=== PATIENT | female | born 2000 | race African-American/Black ===

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

== ENCOUNTER 2022-09-12 10:09 | Emergency (ER) | payer OTHER ==
[2022-09-12 11:12] VITALS: BP 129/71; PULSE 97; RESP 19; TEMP 98.6; BMI 22.2
== END 2022-09-12 12:34 | disposition home or self-care (01) ==
LOC: JER 10:09 → JERFT 10:09
DX: M79.5 Residual foreign body in soft tissue (principal)
CPT/HCPCS: 99282-25

== ENCOUNTER 2023-08-05 11:30 | Emergency (ER) | payer OTHER ==
[2023-08-05 11:48] VITALS: BP 118/62; PULSE 88; RESP 18; TEMP 97.3; BMI 22.6
[2023-08-05 12:56] LABS: HCG,QUALITATIVE URINE Positive
[2023-08-05 13:01] LABS: BASO % 0.6 % (0-2.0); EOS % 5.6 % (0-4.5); EPI CELLS >36 /uL (0-25.1); HEMATOCRIT 35.5 % (32.4-45.2); HEMOGLOBIN 11.9 GM/dL (10.7-15.3); HYALINE CASTS 0 /uL (0-3.1); LYMPH % 24.3 % (8-40); MCH 22.1 pg (25.7-33.7); MCHC 33.5 g/dl (32.0-36.0); MEAN CELL VOLUME 65.9 fl (80-96); MEAN PLT VOLUME 9.2 fl (7.5-11.1); MONO % 6.6 % (3.8-10.2); NEUT % 62.9 % (42.8-82.8); PH,URINE 7.5 (5.0-8.0); PLATELET COUNT 324 10^3/uL (134-434); RBC 5.38 M/mm3 (3.60-5.2); URINE APPEARANCE CLOUDY; URINE BACTERIA 582 /uL (0-1359); URINE BILIRUBIN NEGATIVE (NEGATIVE); URINE COLOR YELLOW; URINE GLUCOSE (UA) NEGATIVE (NEGATIVE); URINE KETONE NEGATIVE (NEGATIVE); URINE LEUK ESTERASE TRACE (NEGATIVE); URINE NITRITE NEGATIVE (NEGATIVE); URINE PROTEIN NEGATIVE (NEGATIVE); URINE RBC 26 /uL (0-23.9); URINE WBC 34 /uL (0-25.8); WHITE BLOOD COUNT 7.6 K/mm3 (4.0-10.0)
[2023-08-05 13:23] LABS: POTASSIUM 3.9 mmol/L (3.5-5.1)
[2023-08-05 13:25] LABS: CALCIUM 9.3 mg/dL (8.5-10.1)
[2023-08-05 13:26] LABS: ALBUMIN 3.8 g/dl (3.4-5.0); BLOOD UREA NITROGEN 6.9 mg/dL (7-18)
[2023-08-05 13:29] LABS: CREATININE 0.7 mg/dL (0.55-1.3)
[2023-08-05 13:30] LABS: TOT PROT 7.1 g/dl (6.4-8.2)
[2023-08-05 13:31] LABS: BILIRUBIN,TOTAL 0.4 mg/dL (0.2-1)
[2023-08-05 13:36] LABS: ANISOCYTOSIS 2+; MACROCYTOSIS 0; OVALOCYTE 1+
== END 2023-08-05 15:56 | disposition home or self-care (01) ==
LOC: JER 11:30
DX: O20.9 Hemorrhage in early pregnancy, unspecified (principal); Z3A.01 Less than 8 weeks gestation of pregnancy
CPT/HCPCS: 36415; 76817-TC; 80053; 81003; 84702; 84703; 85025; 86850; 86900; 86901; 87086; 99284-25